=== PATIENT | female | born 1960 | race Caucasian/White ===

== ENCOUNTER 2024-04-24 10:43 | Day surgery (SDC) | payer BC ==
[~2024-04-24 10:43] MED LIST: HYDROmorphone 0.5 MG/0.5 ML Syringe IVPUSH PRN; Ondansetron 4 MG/2 ML SDV IVPUSH PRN; Sodium Chloride 0.9% 10 ML Syringe FLUSH PRN; Sodium Chloride 0.9% 10 ML Syringe FLUSH SCH; fentaNYL 100 MCG/2 ML SDV IVPUSH PRN
[2024-04-24] MEDS: Lactated Ringers 1,000 ML IV SCH (11:00)
[2024-04-24] MEDS ORDERED: Propofol 200 MG/20 ML SDV ONE ×2 (11:55→13:06)
[2024-04-24] MEDS ORDERED: Midazolam 1 MG/ML 2 ML SDV ONE (11:55)
[2024-04-24] MEDS ORDERED: fentaNYL 250 MCG/5 ML SDV ONE (11:56)
[2024-04-24] MEDS ORDERED: Ketamine 200 MG/20 ML MDV ONE (11:56)
[2024-04-24] MEDS ORDERED: Dexamethasone 4 MG/ML 5 ML MDV ONE (11:57)
[2024-04-24] MEDS ORDERED: Ondansetron 4 MG/2 ML SDV ONE (11:57)
[2024-04-24] MEDS ORDERED: Lidocaine 1% 5 ML VIAL ONE (11:58)
[2024-04-24] MEDS ORDERED: EPINEPHrine 1 MG/ML SDV ONE ×2 (12:39→12:42)
[2024-04-24] MEDS ORDERED: ceFAZolin 2 GM Vial ONE (13:11)
[2024-04-24] MEDS ORDERED: HYDROmorphone 0.5 MG/0.5 ML Syringe ONE (13:14)
[2024-04-24] MEDS ORDERED: HYDROmorphone 0.5 MG/0.5 ML Syringe IVPUSH PRN (13:37)
[2024-04-24] MEDS ORDERED: fentaNYL 100 MCG/2 ML SDV IVPUSH PRN (13:37)
[2024-04-24] MEDS ORDERED: Ondansetron 4 MG/2 ML SDV IVPUSH PRN (13:37)
[2024-04-24] MEDS: Ketorolac 30 MG/ML SDV IVPUSH ONE (14:22)
[2024-04-24] MEDS: Acetaminophen/HYDROcodone 325-5 MG Tab PO PRN (14:42)
[2024-04-24] MEDS: Bupivacaine 0.25% 10 ML SDV ONE (15:59)
== END 2024-04-24 16:10 | disposition home or self-care (01) ==
LOC: JD.SDS 10:43
PROVIDERS: ATTEND Orthopaedic Surgery
DX: S83.242A Other tear of medial meniscus, current injury, left knee, initial encounter (principal); M94.262 Chondromalacia, left knee; E78.5 Hyperlipidemia, unspecified; Z88.2 Allergy status to sulfonamides; Z79.82 Long term (current) use of aspirin; Z79.899 Other long term (current) drug therapy
CPT/HCPCS: 29881; A9270; J0171; J0665; J0690; J1100; J1171; J1885; J2250; J2405; J2704; J3010; J3490; J7120